=== PATIENT | male | born 1950 | race Caucasian/White ===

== ENCOUNTER 2018-02-24 06:46 | Day surgery (SDC) | payer OTHER ==
[2018-02-24] MEDS ORDERED: MIDAZOLAM 1 MG/ML 2 ML INJ ×2 (09:24)
[2018-02-24] MEDS ORDERED: FENTAnyl 50 MCG/ML VIAL (09:24)
== END 2018-02-24 12:18 | disposition home or self-care (01) ==
LOC: GIL 06:46
DX: Z12.11 Encounter for screening for malignant neoplasm of colon (principal); K21.0 Gastro-esophageal reflux disease with esophagitis; D12.0 Benign neoplasm of cecum; K64.4 Residual hemorrhoidal skin tags
CPT/HCPCS: 43239; 82962; 88305; 88312; 88313